=== PATIENT | female | born 1975 | race Native Hawaiian/Other Pacific Islander ===

== ENCOUNTER 2020-12-20 02:49 | Emergency (ER) | payer OTHER ==
[~2020-12-20 02:49] MED LIST: ACETAMINOPHEN-1 EAC1 PO; BENTYL 20 MG TA20 M1 PO; BUTALB-APAP-CA1 EACH PO; CALCIUM 600 +1 EA14 PO; CARAFATE1 GM/10 ML PO; CATAPRES0.2 MG PO; CITRATE OF MAG296 ML PO; DOXEPIN 75 MG C75 M1 GT; DOXYCYCLINE 10100 MG PO; HYDROCODONE-AP1 EAC6 PO; HYDROCODONE-APA1 TA1 PO; IRON325 PO; KLOR-CON 1010 MEQ PO; LEVSIN-SL0.125 MG SL; LISINOPRIL20 MG PO; LYSTEDA650 MG PO; MEDROLDOSEPACK PO; MIRALAX17 GM PO; NAPROSYN500 MG PO; NORCO 5-325 TA1 EAC1 PO; NORCO 5-325 TA1 EACH PO; OMEPRAZOLE 20 M20 M1 PO; ONDANSETRON HCL4 M2 PO; POTASSIUM20 PO; PREVACID 24HR15 MG PO; PROAIR HFA8.5 GM INH; PROVERA10 MG PO; REGLAN 10 MG TA10 MG PO; TOPAMAX 25 MG T25 MG; TRETINOIN10 MG PO; VISTARIL 25 MG25 M1 PO; ZANTAC 150MG T150 MG PO; ZOFRAN ODT4 MG PO; ZOFRAN4 MG PO
[2020-12-20 03:04] VITALS: BP 124/64
== END 2020-12-20 03:30 | disposition home or self-care (01) ==
LOC: ER 02:49
DX: M25.561 Pain in right knee (principal); M54.5 Low back pain; I10 Essential (primary) hypertension; Z90.49 Acquired absence of other specified parts of digestive tract; Z79.899 Other long term (current) drug therapy; Z88.0 Allergy status to penicillin; Z88.8 Allergy status to other drugs, medicaments and biological substances; Z91.041 Radiographic dye allergy status

== ENCOUNTER 2021-01-18 19:46 | Emergency (ER) | payer OTHER ==
[~2021-01-18] VITALS: Ht 154.9 cm; Wt 105.2 kg
[~2021-01-18 19:46] MED LIST changes: +HYDROCODON-ACE1 EAC7 PO
[2021-01-18 20:50] LABS: ABSOLUTE NEUTROPHILS 2.6 thou/uL (1.4-8.2); BASOPHILS 1.5 % (0.0-2.0); EOSINOPHILS 3.5 % (0.0-3.0); HEMATOCRIT 40.7 % (37.0-47.0); HEMOGLOBIN 13.7 gm/dL (12.0-15.0); LYMPHOCYTES 33.5 % (24.0-44.0); MCH 32.1 pg (26.0-34.0); MCHC 33.6 g/dL (28.0-37.0); MCV 95.6 fL (80.0-100.0); MONOCYTES 10.1 % (1.0-8.0); PLATELET COUNT 217 thou/uL (150-400); POLYS 51.4 % (36.0-66.0); RBC 4.25 mil/uL (4.20-5.00); RDW 14.3 % (10.5-14.5); WBC 5.1 thou/uL (4.0-11.0)
[2021-01-18 20:53] LABS: URINE BILIRUBIN NEGATIVE (Negative); URINE BLOOD 2+ (Negative); URINE CLARITY CLEAR; URINE COLOR YELLOW; URINE GLUCOSE-RANDOM* NEGATIVE (Negative); URINE KETONES NEGATIVE (Negative); URINE LEUKOCYTES-REFLEX NEGATIVE (Negative); URINE NITRITE-REFLEX NEGATIVE (Negative); URINE PROTEIN (DIPSTICK) NEGATIVE (Negative); URINE SPECIFIC GRAVITY <= 1.005 (1.005-1.035); URINE UROBILINOGEN 0.2 E.U./dl (0.2-1.0)
[2021-01-18 21:02] LABS: ANION GAP 17 mmol/L (7-16); BUN 10 mg/dL (7-18); CHLORIDE 102 mmol/L (98-107); CO2 20 mmol/L (21-32); CREATININE 0.8 mg/dL (0.6-1.0); GLUCOSE 170 mg/dL (74-106); POTASSIUM 3.3 mmol/L (3.5-5.1); SODIUM 139 mmol/L (136-145)
[2021-01-18 21:06] LABS: BACTERIA-REFLEX >30 Many /HPF (None Seen); SQUAMOUS 0-3 Few /LPF (0-3); URINE RBC 1-2 Rare /HPF (NONE SEEN); URINE WBC-REFLEX 0-5 Rare /HPF (0-5)
[2021-01-18 21:07] LABS: AMP/METHAMP Negative (Negative); BARBITURATES Negative (Negative); BENZODIAZEPINES Negative (Negative); COCAINE Negative (Negative); METHADONE Negative (Negative); OPIATES Negative (Negative); PCP Negative (Negative)
[2021-01-18 21:09] LABS: ALBUMIN 3.6 g/dL (3.4-5.0); AMYLASE 107 U/L (25-115); DIRECT BILIRUBIN < 0.1 mg/dL (<0.1-0.2); LIPASE 168 U/L (73-393); MAGNESIUM 1.7 mg/dL (1.8-2.4); SGOT 187 U/L (15-37); SGPT 286 U/L (30-65); TOTAL BILIRUBIN 0.2 mg/dL (0.2-1.0); TOTAL PROTEIN 8.2 g/dL (6.4-8.2); TROPONIN-I <0.06 ng/mL (<0.06)
[2021-01-18 21:16] LABS: CRYSTALS None Seen /LPF (None Seen); TRANSITIONAL EPITHEL CELL 0-3 Few /LPF (None Seen)
[2021-01-18 21:17] LABS: YEAST-REFLEX Present (None Seen)
[2021-01-18 21:20] LABS: FINE GRANULAR CASTS 0-3 Few /LPF (None Seen)
[2021-01-18 22:26] VITALS: BP 146/95
[2021-01-18] MEDS ORDERED: METFORMIN HCL500 M3 PO (22:30)
[2021-01-18] MEDS ORDERED: REXULTI0.25 MG PO (22:30)
[2021-01-18] MEDS ORDERED: TOPROL XL25 MG PO (22:30)
[2021-01-18] MEDS ORDERED: LIPITOR 20 MG T20 M1 PO (22:30)
[2021-01-18] MEDS ORDERED: TRAZODONE HCL50 MG PO (22:31)
[2021-01-18] MEDS ORDERED: DULOXETINE HCL60 MG PO (22:31)
[2021-01-18] MEDS ORDERED: CIPROFLOXACIN500 M1 PO (22:50)
[2021-01-18] MEDS ORDERED: ZOFRAN ODT4 MG PO (22:50)
--- NOTE | 2021-01-19 13:48 | EKG ---
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 01/19/21 1347 56 56 Adriano Zhao MD, FACC /EPI
== END 2021-01-19 01:23 | disposition still patient (30) ==
LOC: ER 19:46
PROVIDERS: Emergency Medicine
DX: F10.920 Alcohol use, unspecified with intoxication, uncomplicated (principal); N39.0 Urinary tract infection, site not specified; R11.2 Nausea with vomiting, unspecified; R10.13 Epigastric pain; K59.00 Constipation, unspecified; E11.9 Type 2 diabetes mellitus without complications; I10 Essential (primary) hypertension; F41.9 Anxiety disorder, unspecified; Z90.49 Acquired absence of other specified parts of digestive tract; Z79.4 Long term (current) use of insulin; Z91.041 Radiographic dye allergy status; Z88.8 Allergy status to other drugs, medicaments and biological substances; Z88.5 Allergy status to narcotic agent; Z88.0 Allergy status to penicillin; Z79.899 Other long term (current) drug therapy; Y90.6 Blood alcohol level of 120-199 mg/100 ml

== ENCOUNTER 2021-03-03 22:06 | Inpatient (IN) | payer OTHER ==
[~2021-03-03] VITALS: Ht 154.9 cm; Wt 107.5 kg
[~2021-03-03 22:06] MED LIST changes: +CIPROFLOXACIN500 M1 PO; +DULOXETINE HCL60 MG PO; +LIPITOR 20 MG T20 M1 PO; +METFORMIN HCL500 M3 PO; +REXULTI0.25 MG PO; +TOPROL XL25 MG PO; +TRAZODONE HCL50 MG PO
[2021-03-03 22:26] VITALS: BP 170/89
[2021-03-04 00:35] LABS: ABSOLUTE NEUTROPHILS 4.8 thou/uL (1.4-8.2); BASOPHILS 1.1 % (0.0-2.0); EOSINOPHILS 2.9 % (0.0-3.0); HEMATOCRIT 39.9 % (37.0-47.0); HEMOGLOBIN 13.1 gm/dL (12.0-15.0); LYMPHOCYTES 26.2 % (24.0-44.0); MCH 31.8 pg (26.0-34.0); MCHC 32.9 g/dL (28.0-37.0); MCV 96.9 fL (80.0-100.0); MONOCYTES 8.5 % (1.0-8.0); PLATELET COUNT 279 thou/uL (150-400); POLYS 61.3 % (36.0-66.0); RBC 4.11 mil/uL (4.20-5.00); RDW 13.7 % (10.5-14.5); WBC 7.8 thou/uL (4.0-11.0)
[2021-03-04 00:37] LABS: URINE BILIRUBIN NEGATIVE (Negative); URINE BLOOD NEGATIVE (Negative); URINE CLARITY CLEAR; URINE COLOR YELLOW; URINE GLUCOSE-RANDOM* 3+ (Negative); URINE KETONES TRACE (Negative); URINE LEUKOCYTES-REFLEX NEGATIVE (Negative); URINE NITRITE-REFLEX NEGATIVE (Negative); URINE PROTEIN (DIPSTICK) NEGATIVE (Negative); URINE UROBILINOGEN 0.2 E.U./dl (0.2-1.0)
[2021-03-04 00:39] LABS: CALCIUM 8.5 mg/dL (8.5-10.1); CREATININE 0.9 mg/dL (0.6-1.0); POTASSIUM 4.7 mmol/L (3.5-5.1)
[2021-03-04 00:45] LABS: ALBUMIN 3.4 g/dL (3.4-5.0); TOTAL BILIRUBIN 0.3 mg/dL (0.2-1.0); TOTAL PROTEIN 8.1 g/dL (6.4-8.2)
[2021-03-04 07:02] VITALS: BP 120/68
[2021-03-04 07:50] VITALS: BP 120/68
--- NOTE | 2021-03-04 10:13 | NUR ---
ASSUMED PT CARE FROM ED AT 1030. PT IS ALERT & ORIENTED X4. PT HAS IV SITE ON KAUR 22 GAUGE RUNNING NS @ 100ML/HR. PT C/O OF PAIN ON R ABDOMEN. NO TEETH NOTED. INFORMED DR ABOUT PAIN, NAUSEA, FEVER AND DIET ORDERED. AWAITING FOR ORDERS. FINISHED ADMISSION. PT IS UP AD ANIL. PT IS ON ROOM AIR. GIVEN CHICKEN BROTH PER PT REQUEST THIS AM. PT ON THE BED WATCHING TV, BED ON THE LOWEST POSITION, SIDE RAILS UP, CALL LIGHT WITHIN REACH. WILL CONTINUE TO MONITOR PT. FOLLOW POC.
--- NOTE | 2021-03-04 11:36 | EKG ---
[address] [address] ELECTROCARDIOGRAM REPORT Name: GALDINOALBERTINA RUTHY Room #: 447-P ADM IN M.R.#: [id number] Admission: 03/04/21 Attend Phys: Francisco J Loyd MD Discharge: Date of : 77 Report #: [id number] [facility] Test Date: 2021-03-04 Test Time: 09:22:30 Pat Name: ALBERTINA AHMADI Department: Room: 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 : 1975 Requested By: Abran Rae Order Number: [id number] MD: Anton Bills Measurements Intervals [place] Rate: 92 P: 40 [place]: 167 QRS: 17 QRSD: 88 T: 31 QT: 355 QTc: 440 Interpretive Statements Sinus rhythm Compared to ECG 01/18/2021 20:57:15 Sinus tachycardia no longer present Myocardial infarct finding no longer present Poor R-wave progression no longer present Electronically Signed On 03-04-2021 11:36:07 CDT by Anton Bills [email or web address] <ELECTRONICALLY SIGNED> By: Anton Bills MD, [facility] 03/04/21 1136 1 1 Anton Bills MD, [facility] /EPI
[2021-03-04 17:16] VITALS: BP 150/96
[2021-03-04 20:15] VITALS: BP 173/114
[2021-03-04 23:06] LABS: GLYCOHEMOGLOBIN (HGB A1C) 9.2 % (4.8-5.6)
[2021-03-05] VITALS: BP 144/100
[2021-03-05 00:45] VITALS: BP 165/110
--- NOTE | 2021-03-05 03:50 | NUR ---
PT IS A/O X4 AND IS UP AD ANIL IN THE ROOM. PT IS PLEASANT AND COOPERATIVE BUT APPEARS RESTLESS AND ANXIOUS. SCRATCHING HER ALL OVER HER BODY. C/O OF ITCHING FREQUENTLY AND OF ABDOMINAL PAIN. IS CONSISTENT IN ASKING FOR FOOD APPROXIMATELY ONCE AN HOUR THIS NOC UNTIL 2AM. BP ELEVATED. NOTIFIED BILLET SAWYER AND WAS GIVEN AN ORDER FOR PRN BP LOWERING MEDICATION PRN Q6. AT THIS TIME PT IS LYING IN HER BED AND APPEARS TO BE SLEEPING WITH EYES CLOSED. WILL CONTINUE TO MONITOR.
[2021-03-05 04:05] VITALS: BP 124/80
[2021-03-05 06:13] LABS: ABSOLUTE NEUTROPHILS 3.8 thou/uL (1.4-8.2); BASOPHILS 0.9 % (0.0-2.0); EOSINOPHILS 4.6 % (0.0-3.0); HEMATOCRIT 38.5 % (37.0-47.0); HEMOGLOBIN 12.8 gm/dL (12.0-15.0); LYMPHOCYTES 19.3 % (24.0-44.0); MCH 32.4 pg (26.0-34.0); MCHC 33.3 g/dL (28.0-37.0); MCV 97.2 fL (80.0-100.0); MONOCYTES 8.6 % (1.0-8.0); PLATELET COUNT 214 thou/uL (150-400); POLYS 66.6 % (36.0-66.0); RBC 3.96 mil/uL (4.20-5.00); RDW 13.5 % (10.5-14.5); WBC 5.7 thou/uL (4.0-11.0)
[2021-03-05 06:27] LABS: CALCIUM 8.6 mg/dL (8.5-10.1); CREATININE 0.7 mg/dL (0.6-1.0); MAGNESIUM 1.7 mg/dL (1.8-2.4)
[2021-03-05 07:05] VITALS: BP 135/82
[2021-03-05 12:22] LABS: AMP/METHAMP Negative (Negative); BARBITURATES Negative (Negative); BENZODIAZEPINES Negative (Negative); COCAINE Negative (Negative); METHADONE Negative (Negative); OPIATES Negative (Negative); PCP Negative (Negative)
[2021-03-05 16:25] VITALS: BP 152/95
--- NOTE | 2021-03-05 16:56 | NUR ---
Patient alert and orinted x4, on room air, IV replaced this AM, up with SBA, pain medications given per MAR, tolerating diet well, vital signs stable, and afbreile. Call light with in reach, will continue to monitor.
[2021-03-05 20:00] VITALS: BP 124/71
--- NOTE | 2021-03-06 03:37 | NUR ---
RECEIVED CARE OF THIS PATIENT AT 1900. PATIENT ALERT AND ORIENTED X4. UP TO BATHROOM WITH SBA. ACCUCHECK WAS 192, NO COVERAGE ORDERED. WANTED TO EAT SEVERAL TIMES BUT EXPLANED TO PATIENT THAT SHE SHOULD NOT EAT ANY MORE BECAUSE OF HER BLOOD SUGAR. IV PATENT IN L CHEST WITH FLUIDS INFUSING. C/O PAIN. MED GIVEN. SLEPT VERY LITTLE THIS SHIFT.
[2021-03-06 07:30] VITALS: BP 151/98
[2021-03-06 12:41] LABS: CALCIUM 8.7 mg/dL (8.5-10.1); CREATININE 0.7 mg/dL (0.6-1.0); POTASSIUM 4.1 mmol/L (3.5-5.1); TOTAL BILIRUBIN 0.3 mg/dL (0.2-1.0); TOTAL PROTEIN 7.1 g/dL (6.4-8.2)
[2021-03-06 15:35] VITALS: BP 129/68
[2021-03-06 19:21] VITALS: BP 132/82
--- NOTE | 2021-03-07 03:29 | NUR ---
RECEIVED CARE OF THIS PATIENT AT 1900. PATIENT ALERT AND ORIENTED X4. UP TO BATHROOM EVERY FEW MINUTES. HAS HAD SEVERAL SMALL STOOLS PER PATIENT. NPO SINCE [place] FOR A COLONSCOPY THIS AM. ACCUCHECK WAS 120, NO COVERAGE ORDERED. IV IN L CHEST PATENT WITH FLUIDS INFUSING. C/O PAIN, MED GIVEN. SLEPT OFF AND ON DURING NIGHT.
[2021-03-07 04:57] VITALS: BP 152/95
[2021-03-07 07:57] VITALS: BP 144/71
[2021-03-07 11:06] LABS: % SATURATION 29 % (20-39); IRON 106 ug/dL (50-170); TIBC 361 ug/dL (250-450)
--- NOTE | 2021-03-07 11:37 | NUR ---
Received awake on bed. On nothing per orem- pt informed and aware. On MS, not on telemetry; no complains and signs of chest pain, crushing sensation and heaviness. Assisted in ADLs. Vital signs stable. On room air. On blood sugar monitoring, taken and recorded accordingly. Continent of bowel and bladder, able to go to the toilet independently; calls appropriately for assistance. With NS at 100cc/hr, infusing well at L chest. No complains of pain made during assessment. No nausea, no vomiting and no abdominal pain noted. For EGD/Colonoscopy today, consent to be signed; report given to GI nurse; pt to be fetched arround 11:30-1200pm- pt updated. To continue monitoring patient.
--- NOTE | 2021-03-07 14:57 | NUR ---
ASSESSMENT: CM REVIEWED CHART AND MET WITH PATIENT AT THE BEDSIDE. PT WAS ASMITTED DUE TO INTRACTABLE ABDOMINAL PAIN. PT HAD EGD COLONSCOPY TODAY, BIPOSIES OBTAINED. PTS DIET IS ADVANCING AND POSSIBLE DISCHARGE HOME SOON. PT REPORTS THAT SHE LIVES IN AN APT ALONE WITH HER DOG. PT REPORTS ABOUT 7 STEPS WITH HANDRAILS TO ENTER THE APT AND NO STEPS ONCE INSIDE. PT REPORTS SHE IS INDEPENDENT WITH ADLS AND AMBULATION. PT HAS A ADMINISTRATIVE PROFESSIONAL THROUGH [facility] NAMED BERT BEDOLLA ([phone]). PT PROVIDED HER INFORMATION AND WAS OK WITH CM UPDATING HER ON INFORMATION. CM NOTIFIED ADMINISTRATIVE PROFESSIONAL AND SHE REPORTS SHE ASSIST PATIENT AND PT IS CURRENTLY ALSO ON A HOUSING VOUCHER WHERE THEY ASSIST WITH HER RENT. PT WILL LIKELY DISCHARGE HOME SOON. CM WILL CONTINUE TO FOLLOW TO ASSIST NEEDED.
[2021-03-07 15:11] VITALS: BP 149/95
[2021-03-07 17:06] LABS: HAV IgM AB (ANTI-HAV IgM) Negative (Negative); HEPATITIS B SURFACE AG Negative (Negative); HEPATITIS C VIRUS AB <0.1 (0.0-0.9)
[2021-03-07 20:43] VITALS: BP 154/98
--- NOTE | 2021-03-08 04:30 | NUR ---
ASSUMED PT CARE AT 1930. PT WAS IN BED TRYING TO SLEEP. PT IS ALERT AND ORIENTED. INTRODUCED SELF TO PT. WHITE BOARD WAS UPDATED. PT DID NOT EXPRESS ANY CONCERNS AND NO VISIBLE SIGN OF DISTRESS WAS NOTED. BED ON LOWEST LOCKED POSITION WITH BED ALRAM ON AND CALL LIGHT WITHIN REACH.
[2021-03-08 05:58] LABS: ALBUMIN 2.9 g/dL (3.4-5.0); DIRECT BILIRUBIN 0.1 mg/dL (<0.1-0.2); TOTAL BILIRUBIN 0.3 mg/dL (0.2-1.0); TOTAL PROTEIN 6.9 g/dL (6.4-8.2)
[2021-03-08 07:09] LABS: CERULOPLASMIN 32.7 mg/dL (19.0-39.0)
--- NOTE | 2021-03-08 12:03 | NUR ---
ASSESSED CARE OF PT AT 7:00 AM. PT IS ALERT AND UP AT ANIL. CONTINENT OF BOWEL AND BLADDER. PAIN NOTED IN LEFT LOWER ABDOMEN NOTED RELEIVED WITH MEDICATION. IV ANTIBIOTICS INFUSED IN RIGHT FA. PT. IS ON RA LUNGS ARE CLEAR AND SKIN IS INTACT. FALL PRECATIONS IN PLACE. CALL LIGHT IS WITHIN REACH. WILL CONTINUE TO MONITOR UNTIL END OF SHIFT OR DISCHARGE.
--- NOTE | 2021-03-08 12:42 | P ---
[facility] [place] [address] PROCEDURE REPORT Name: ALBERTINA AHMADI Room #: 447-P ADM IN M.R.#: [id number] Admission: 03/04/21 Attend Phys: Francisco J Loyd MD Discharge: Date of : 77 Report #: [id number] THIS REPORT FOR: cc: [facility] - Clinic physician unknown [facility] - Clinic physician unknown Marvin Swann MD ~ DOC #: [id number] cc: MD Marvin Kraft MD DATE OF SERVICE: 03/07/2021 PROCEDURE PERFORMED: Colonoscopy with biopsies. HISTORY OF PRESENT ILLNESS: The patient is a 45-year-old female with a history of constipation, bright red blood per rectum. No previous history of colonoscopy. No family history of colon cancer or inflammatory bowel disease. Also, complains of abdominal pain. This is right upper and right lower quadrant. She has had a previous cholecystectomy. She underwent a CT scan of the abdomen and pelvis on 03/04/2021 showing mild hepatosplenomegaly. No evidence of obstruction. A cyst was noted in the right ovary. Pelvic ultrasound performed. Very limited exam. Normal uterus and endometrium. Ovaries were not visualized. Abdominal ultrasound, mild hepatic steatosis. Previous cholecystectomy changes noted. No evidence of bile duct dilation. KUB yesterday shows significant amount of stool in the colon without evidence of bowel obstruction. DESCRIPTION OF PROCEDURE: The risks and benefits of the procedure were explained to the patient, those risks including but not limited to bleeding, perforation and the risk of sedation. She understood these risks and gave informed consent. Sedation was given using propofol per anesthesia. Next, a digital rectal exam was initially performed, which was normal. Next, using a standard Olympus colonoscope, the scope was placed in the patient's anus and advanced under direct vision to the cecum. The overall prep was good in most areas. It was somewhat poor and very limited areas, which did limit visualization, but most areas were well visualized today. The cecum and ileocecal valve were normal in appearance. Ascending, transverse and descending colon were normal. In the distal sigmoid colon and the rectum, mild patchy erythema was noted. Biopsies were obtained to rule out the possibility of colitis. This may be just secondary to prep effect; however, close examination of the anal canal showed external hemorrhoids, nonbleeding. There was no evidence of blood throughout the exam today. The scope was then withdrawn and the procedure terminated. The patient tolerated the procedure well. IMPRESSION: 1. Possible mild colitis involving the distal sigmoid colon and rectum. [address] [address] PROCEDURE REPORT Name: ALBERTINA AHMADI Room #: 447-P [facility] IN .R.#: [id number] Admission: 03/04/21 Attend Phys: Francisco J Loyd MD Discharge: Date of : 77 Report #: [id number] Biopsies were obtained. This could be, however, just prep effect. 2. External hemorrhoids, nonbleeding, likely source of recent bright red blood per rectum. 3. Otherwise, normal colonoscopy. RECOMMENDATIONS: 1. Await biopsy results. 2. We will advance diet. Would continue MiraLax on a daily basis as the patient has a history of chronic constipation. Etiology of her abdominal pain is unclear. CT was essentially negative other than right ovarian cyst was seen. She has had a previous cholecystectomy. She does have elevated liver function test, may need to proceed with further liver lab workup. Agree with antispasmodic such as Levsin or Bentyl to see if this is helpful for possible irritable bowel syndrome. Thank you for allowing me to participate in her care. Marvin Swann MD [facility] <ELECTRONICALLY SIGNED> By: Marvin Swann MD 03/08/21 1242 1249 2216 Marvin Swann MD /nt
--- NOTE | 2021-03-08 12:42 | P ---
[facility] [place] [address] PROCEDURE REPORT Name: ALBERTINA AHMADI Room #: 447-P ADM IN M.R.#: [id number] Admission: 03/04/21 Attend Phys: Francisco J Loyd MD Discharge: Date of : 77 Report #: [id number] THIS REPORT FOR: cc: [facility] - Clinic physician unknown [facility] - Clinic physician unknown Marvin Swann MD ~ DOC #: [id number] cc: MD Marvin Kraft MD DATE OF SERVICE: 03/07/2021 PROCEDURE PERFORMED: Upper endoscopy with biopsies. HISTORY OF PRESENT ILLNESS: The patient is a 45-year-old female who was admitted on 03/04/2021 for nausea, vomiting, abdominal pain and constipation. She reports right upper and right lower quadrant abdominal pain, rectal burning and itching, constipation for the last several weeks. CT scan of the abdomen and pelvis showed mild hepatosplenomegaly. No evidence of bowel obstruction. She has had a previous cholecystectomy. She does report intermittent heartburn symptoms. She denies any dysphagia. She also has elevated liver function tests. Plan is for EGD and colonoscopy today. DESCRIPTION OF PROCEDURE: The risks and benefits of the procedure were explained to the patient, those risks including but not limited to bleeding, perforation and the risk of sedation. She understood these risks and gave informed consent. Sedation was given using propofol per anesthesia. Next, using a standard Olympus upper endoscope, the scope was placed in the patient's mouth and advanced under direct vision through the esophagus, stomach and into the second portion of the duodenum. The esophagus was normal throughout. The GE junction was normal. Overall, the gastric mucosa was normal. Biopsies were obtained to rule out H. pylori. The pylorus was normal and patent. The duodenal bulb, first and second portion were all normal. The scope was then withdrawn and the procedure terminated. The patient tolerated the procedure well. IMPRESSION: 1. Normal upper endoscopy. RECOMMENDATIONS: 1. Await biopsy results. 2. Continue PPI therapy. 3. We will proceed with colonoscopy next today. Thank you for allowing me to participate in her care. [address] [address] PROCEDURE REPORT Name: GALDINOALBERTINA Room #: 447-P [facility] IN .R.#: [id number] Admission: 03/04/21 Attend Phys: Francisco J Loyd MD Discharge: Date of : 77 Report #: [id number] Marvin Swann MD [facility] <ELECTRONICALLY SIGNED> By: Marvin Swann MD 03/08/21 1242 1246 2209 Marvin Swann MD /nt
[2021-03-08] MEDS ORDERED: METFORMIN HCL500 M3 PO (15:11)
[2021-03-08] MEDS ORDERED: CIPRO500 M1 PO (15:16)
[2021-03-08] MEDS ORDERED: FLAGYL500 M1 PO (15:19)
[2021-03-08] MEDS ORDERED: TRAMADOL 50 MG50 MG PO (15:25)
--- NOTE | 2021-03-08 15:42 | NUR ---
ON-GOING ASSESSMENT: CM REVIEWED CHART AND SPOKE WITH PT AT THE BEDSIDE. PT HAS ORDERS TO DISCHARGE HOME TODAY. 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 PT REPORTS HER BOYFRIEND IS AT HER APT AND WILL BE THERE WHEN SHE GETS HOME BUT IS NEEDING TRANSPORTATION. PT REPORTS SHE IS IN A HURRY TO GET HOME AND REQUESTING A CAB VOUCHER. CM COMPLETED CAB VOUCHER AND PROVIDED TO BEDSIDE RN VOUCHER#[id number]. CASE CLOSED.
[2021-03-08 15:51] VITALS: BP 120/70
[2021-03-08 15:57] VITALS: BP 132/61
--- NOTE | 2021-03-10 17:07 | PATH ---
[facility] [place] [address] PATHOLOGY RPT PROCEDURE Name: AHMADI,ALBERTINA RUTHY Room #: 447-P DIS IN M.R.#: [id number] Admission: 03/04/21 Date of : 77 Discharge: 03/08/21 Report #: [id number] Path Case #: [id number] [facility] Accession Number: [id number] . 01 Material submitted: . PART A: gastrointestinal site - GASTRIC BIOPSY PART B: colon - COLITIS . 01 Clinical history: . ABDOMINAL PAIN, NAUSEA, VOMITING . 01 Frozen section diagnosis: . . /QMS . 02 Diagnosis: A. Gastric mucosa, gastric R/O H. pylori, endoscopic biopsy: - Mild reactive gastropathy. - Negative for intestinal metaplasia or atrophy. - Negative for Helicobacter pylori (properly controlled immunohistochemical stain performed). . B. Large intestine mucosa, colitis, endoscopic biopsy: - Moderate active colitis involving all fragments sampled. - Negative for dysplasia or malignancy. (IUV:jean marie; 03/10/2021) QMS 03/10/2021 1511 Local . 02 Comment: B. Sections of the colonic mucosa designated "colitis" show focal cryptitis, and a moderately cellular lamina propria composed predominantly of lymphocytes and plasma cells and occasional eosinophils. Surface ulceration is not identified. There are no granulomas or viral inclusions. The process affects all the fragments with a similar intensity. Scattered rare architectural abnormalities and focal crypt abscess formation are identified. Given the description, the differential diagnosis includes acute colitis of self-limited etiology, inflammatory bowel disease (Crohn's disease as well as ulcerative colitis), acute and chronic diverticulitis as well as medication/drug induced colitis. Please correlate with clinical as well as endoscopic findings. (IUV:jean marie; 03/10/2021) . 02 Electronically signed: . Aliyah Irby MD, Pathologist NPI- [id number] . [address] [place] [address] PATHOLOGY RPT PROCEDURE Name: ALBERTINA AHMADI Room #: 447-P [facility] IN [facility].#: [id number] Admission: 03/04/21 Date of : 77 Discharge: 03/08/21 Report #: [id number] Path Case #: [id number] Gross description: . A. The specimen is received in formalin, labeled "Albertina Ahmadi gastric biopsy". Received are four segments of pale jordan tissue ranging in size from 0.2-0.6 cm in maximum dimensions. The specimen is submitted entirely in cassette A1. . B. The specimen is received in formalin, labeled "Albertina Ahmadi, colitis". Received are multiple segments of pale jordan tissue ranging in size from 0.2-0.5 cm in maximum dimensions. The specimen is submitted entirely in cassette B1. (CAA; 03/09/2021) QAC/QAC 03/09/2021 1335 Local . 02 Pathologist provided ICD-10: K31.9, K52.9 . 02 CPT . 520436, 517176, D36531 Performed at: [address], [place], [place] [id number] MD Bc Borden MD Phone: [phone] Performed at: [address] [id number] MD Aliyah Irby MD Phone: [phone]
== END 2021-03-08 16:12 | disposition home or self-care (01) | DRG 392 ==
LOC: ER 22:06 → EROBS 03-04 05:08 → 4S 03-04 05:08
PROVIDERS: Emergency Medicine; Nurse Practitioner; Specialist; ADMIT Internal Medicine; ATTEND Internal Medicine
PROC: 0DBP8ZX Excision of Rectum, Via Natural or Artificial Opening Endoscopic, Diagnostic (ICD-10-PCS; principal; 2021-03-07)
PROC: 0DBN8ZX Excision of Sigmoid Colon, Via Natural or Artificial Opening Endoscopic, Diagnostic (ICD-10-PCS; principal; 2021-03-07)
PROC: 0DB68ZX Excision of Stomach, Via Natural or Artificial Opening Endoscopic, Diagnostic (ICD-10-PCS; principal; 2021-03-07)
DX: K52.9 Noninfective gastroenteritis and colitis, unspecified (principal); K92.1 Melena; C95.91 Leukemia, unspecified, in remission; Z68.41 Body mass index [BMI] 40.0-44.9, adult; K62.89 Other specified diseases of anus and rectum; I10 Essential (primary) hypertension; F41.9 Anxiety disorder, unspecified; K64.4 Residual hemorrhoidal skin tags; G89.29 Other chronic pain; J45.909 Unspecified asthma, uncomplicated; E11.9 Type 2 diabetes mellitus without complications; E78.5 Hyperlipidemia, unspecified; E66.9 Obesity, unspecified; N83.209 Unspecified ovarian cyst, unspecified side; Z79.899 Other long term (current) drug therapy; Z88.5 Allergy status to narcotic agent; Z90.49 Acquired absence of other specified parts of digestive tract; Z88.8 Allergy status to other drugs, medicaments and biological substances; Z91.041 Radiographic dye allergy status; Z88.0 Allergy status to penicillin
CPT/HCPCS: 10195; 62110; 62900; 70005

== ENCOUNTER 2021-10-08 02:44 | Emergency (ER) | payer OTHER ==
[~2021-10-08] VITALS: Ht 154.9 cm; Wt 107.5 kg
--- NOTE | ~2021-10-08 | EMS ---
[address] [address] EMS Patient Care Report Name: ALBERTINA AHMADI Room #: DEP [facility]#: [id number] Admission: 10/08/21 Attend Phys: Discharge: 10/08/21 Date of : 77 Report #: [id number] THIS REPORT FOR: //name// Report Transmitted: 10/10/2021 09:55 EMS Care Summary [place], [place]/[facility] Incident [phone] @ 10/08/2021 02:11 Incident Location [address] [place] [address] Patient ALBERTINA AHMADI Female, 45 Years 1975 Patient Address [address] [place] [address] Patient History Hypertension (HTN),Cholecystectomy,Anxiety,Alcohol Abuse,Heartburn,Sleep Apnea,Type 2 Diabetes,Leukemia,None Reported, Patient Allergies Penicillin allergy,Fish allergy,Ibuprofen,Naproxen, Patient Medications None Reported, Lisinopril, Insulin, Other, Atorvastatin, Metformin, Trazodone, Metoprolol, Pantoprazole, Docusate Sodium, Duloxetine, Chief Complaint NAUSEA AND VOMITING Disposition Transported No Lights/[place] Dispatch Reason Allergic Reaction/Stings Transported To [address] [address] EMS Patient Care Report Name: ALBERTINA AHMADI Room #: DEP ER [facility]#: [id number] Admission: 10/08/21 Attend Phys: Discharge: 10/08/21 Date of : 77 Report #: [id number] PT FOUND STANDING IN LIVING ROOM OF HER HOME. PT STATES THAT SHE THINKS SHE IS HAVING AN ALLERGIC REACTION TO SUSHI. PT STATES THAT SHE IS ALLERGIC TO FISH BUT TONIGHT ATE SOME SUSHI HER BOYFRIEND GAVE HER AND NOW IS HAVING AN ALLERGIC REACTION TO IT. PT ABLE TO SPEAK IN FULL SENTENCES. PT HAS CEBBS. PT IS INTERMITTENTLY VOMTING. PT STATES THAT SHE HAS NOT TAKEN ANY OTC ALLERGY MEDS. PT HAS NO VISIBLE TRAUMA. PT HAS NO COMPLAINTS OF SOB, CP OR TRAUMA. NO CHANGES NOTED ENROUTE. Initial Vitals @:29P: 89,R: 18,BP: 137/83,Pain: 4/10,GCS: 15,SpO2: 96,Revised Trauma: 12, Assessments @02:23MENTAL:No Abnormalities,SKIN:No Abnormalities,HEENT:Head/Face: No Abnormalities,LUNG SOUNDS:General: Vomiting,General: Nausea,ABDOMEN:General: Vomiting,General: Nausea,PELVIS//GI:No Abnormalities,EXTREMITIES:PULSE:NEURO:No Abnormalities, Impression Allergic Reaction Procedures @02:23 ALS Assessment Response: UnchangedSucceeded @:28 Stretcher Response: Unchanged Timeline 02:09,Call Received 02:09,Dispatch Notified 02:11,Dispatched 02:14,En Route 02:20,On Scene 02:22,At Patient 02:23,ALS Assessment,Response: UnchangedSucceeded, 02:28,Stretcher,Response: Unchanged 02:29,BP: 137/83 M,PULSE: 89,RR: 18 R,SPO2: 96 Ox,ETCO2: ,BG: ,PAIN: 4,GCS: 15, 02:32,Depart Scene 02:40,At Destination 02:49,Call Closed Disclaimer v1.1 Copyright 2021 [employer] This EMS Care Summary contains data elements from the applicable legal record (which may be displayed differently). It is designed to provide pertinent information for the following purposes: continuity of care, clinical quality, and state data reporting. The complete legal record is available to ED staff and administrators of the receiving hospital in [employer]'s Patient Tracker. All data [address] [address] EMS Patient Care Report Name: ALBERTINA AHMADI Room #: DEP [facility]#: [id number] Admission: 10/08/21 Attend Phys: Discharge: 10/08/21 Date of : 77 Report #: [id number] is provided "as is."
[~2021-10-08 02:44] MED LIST changes: +CIPRO500 M1 PO; +FLAGYL500 M1 PO; +TRAMADOL 50 MG50 MG PO
[2021-10-08 03:52] LABS: URINE BILIRUBIN NEGATIVE (Negative); URINE BLOOD NEGATIVE (Negative); URINE CLARITY CLEAR; URINE COLOR YELLOW; URINE GLUCOSE-RANDOM* 3+ (Negative); URINE KETONES NEGATIVE (Negative); URINE LEUKOCYTES-REFLEX NEGATIVE (Negative); URINE NITRITE-REFLEX NEGATIVE (Negative); URINE PROTEIN (DIPSTICK) NEGATIVE (Negative); URINE SPECIFIC GRAVITY 1.015 (1.005-1.035); URINE UROBILINOGEN 0.2 E.U./dl (0.2-1.0)
[2021-10-08] MEDS ORDERED: ZOFRAN ODT4 MG PO (04:06)
[2021-10-08 04:42] LABS: ABSOLUTE NEUTROPHILS 2.6 thou/uL (1.4-8.2); BASOPHILS 1.4 % (0.0-2.0); EOSINOPHILS 2.4 % (0.0-3.0); HEMATOCRIT 35.8 % (37.0-47.0); HEMOGLOBIN 12.4 gm/dL (12.0-15.0); LYMPHOCYTES 35.8 % (24.0-44.0); MCH 31.6 pg (26.0-34.0); MCHC 34.5 g/dL (28.0-37.0); MCV 91.7 fL (80.0-100.0); MONOCYTES 10.3 % (1.0-8.0); PLATELET COUNT 209 thou/uL (150-400); POLYS 50.1 % (36.0-66.0); RBC 3.91 mil/uL (4.20-5.00); RDW 13.5 % (10.5-14.5); WBC 5.2 thou/uL (4.0-11.0)
[2021-10-08 04:52] LABS: ANION GAP 19 mmol/L (7-16); BUN 14 mg/dL (7-18); CALCIUM 8.4 mg/dL (8.5-10.1); CHLORIDE 96 mmol/L (98-107); CO2 20 mmol/L (21-32); CREATININE 0.8 mg/dL (0.6-1.0); GLUCOSE 443 mg/dL (74-106); SODIUM 135 mmol/L (136-145)
[2021-10-08 05:10] LABS: ALBUMIN 3.6 g/dL (3.4-5.0); DIRECT BILIRUBIN < 0.1 mg/dL (<0.1-0.2); LIPASE 197 U/L (73-393); SGOT 194 U/L (15-37); SGPT 279 U/L (30-65); TOTAL BILIRUBIN 0.3 mg/dL (0.2-1.0); TOTAL PROTEIN 7.2 g/dL (6.4-8.2)
[2021-10-08 06:25] VITALS: BP 122/50
== END 2021-10-08 06:26 | disposition home or self-care (01) ==
LOC: ER 02:44
PROVIDERS: Student in an Organized Health Care Education/Training Program
DX: R11.2 Nausea with vomiting, unspecified (principal); I10 Essential (primary) hypertension; E11.9 Type 2 diabetes mellitus without complications; F41.9 Anxiety disorder, unspecified; Z79.899 Other long term (current) drug therapy; Z90.49 Acquired absence of other specified parts of digestive tract; Z88.0 Allergy status to penicillin; Z88.5 Allergy status to narcotic agent; Z91.041 Radiographic dye allergy status